=== PATIENT | female | born 1995 | race Caucasian/White ===

== ENCOUNTER → 2019-10-31 | Outpatient (CLI) | payer OTHER ==
--- NOTE | 2019-10-31 08:24 | US ---
EXAMINATION TYPE: US abdomen limited DATE OF EXAM: 10/31/2019 COMPARISON: NONE CLINICAL HISTORY: Rt upper Quad abd R10.811. EXAM MEASUREMENTS: Liver Length: 14.9 cm Gallbladder Wall: .2 cm CBD: .5 cm Right Kidney: 10.3 x 3.8 x 4.4 cm Pancreas: wnl Liver: wnl Gallbladder: wnl Evidence for sonographic Franklin's sign: No CBD: wnl Right Kidney: wnl No evident ascites. IMPRESSION: No significant abnormalities evident
== END | disposition home or self-care (01) ==
LOC: RADUSWWP 07:31
PROVIDERS: ATTEND Internal Medicine
DX: R10.811 Right upper quadrant abdominal tenderness (principal)
CPT/HCPCS: 76705